=== PATIENT | male | born 1990 | race Caucasian/White ===

== ENCOUNTER 2018-04-24 21:02 | Emergency (ER) | payer SELFPAY ==
[2018-04-24 21:16] VITALS: O2SAT 97
--- NOTE | 2018-04-24 21:24 | ED PDOC ---
HPI: Influenza Time Seen by Provider: 04/24/18 21:22 Chief Complaint: Flu-like Symptoms Chief Complaint (Provider): Flu like symptoms History Per: Patient Exam Limitations: no limitations Symptoms include: fever, headache, bodyaches, cough. denies: sore throat, vomiting Additional complaint(s):: 28 year old male presents to the ED complaining of cough, fever, bodyaches, and headache since Saturday. Patient reports he took aspirin today. Denies sore throat or vomiting. PMD: none Past Medical History Reviewed: Historical Data, Nursing Documentation, Vital Signs Vital Signs: Last Vital Signs Temp 102.5 F H 04/24/18 21:14 Pulse 108 H 04/24/18 21:14 Resp 20 04/24/18 21:14 BP 148/71 04/24/18 21:14 Pulse Ox 97 04/24/18 21:14 - Medical History PMH: No Chronic Diseases - Surgical History Surgical History: Appendectomy (may 2013) - Family History Family History: States: Unknown Family Hx - Immunization History Hx Tetanus Toxoid Vaccination: No Hx Influenza Vaccination: No Hx Pneumococcal Vaccination: No - Home Medications Home Medications: Ambulatory Orders Medication Instructions Recorded Famotidine [Pepcid] 20 mg PO BID #20 tab 03/25/14 Ondansetron [Zofran] 4 mg PO Q8H #9 tab 03/25/14 Acetaminophen [Acetaminophen Extra 2 tab PO Q6 PRN #24 tablet 04/24/18 Strength] Ibuprofen [Motrin Tab] 800 mg PO Q8 PRN #21 tab 04/24/18 Oseltamivir Phosphate [Tamiflu] 75 mg PO BID #9 capsule 04/24/18 - Allergies Allergies/Adverse Reactions: Allergies Allergy/AdvReac Type Severity Reaction Status Date / Time No Known Allergies Allergy Verified 04/24/18 21:16 Review of Systems ROS Statement: Except As Marked, All Systems Reviewed And Found Negative Constitutional: Positive for: Fever, Other (bodyaches) ENT: Negative for: Throat Pain Respiratory: Positive for: Cough Gastrointestinal: Negative for: Vomiting Neurological: Positive for: Headache Physical Exam - Reviewed Nursing Documentation Reviewed: Yes Vital Signs Reviewed: Yes - Physical Exam Appears: Positive for: Non-toxic, No Acute Distress Head Exam: Positive for: ATRAUMATIC, NORMOCEPHALIC Skin: Positive for: Normal Color, Warm, Dry Eye Exam: Positive for: Normal appearance ENT: Positive for: Normal ENT Inspection, Pharynx Is (normal) Neck: Positive for: Normal, Painless ROM Cardiovascular/Chest: Positive for: Regular Rate, Rhythm Respiratory: Positive for: Normal Breath Sounds. Negative for: Wheezing, Respiratory Distress Gastrointestinal/Abdominal: Positive for: Normal Exam, Soft. Negative for: Tenderness Extremity: Positive for: Normal ROM Neurologic/Psych: Positive for: Alert, Oriented. Negative for: Motor/Sensory Deficits Medical Decision Making Medical Decision Making: Initial Plan: --Motrin 800mg PO --Tylenol 975mg PO --Tamiflu 75mg PO Scribe Attestation: Documented by Kvng Hanna acting as a scribe for Kye PASCUAL. Provider Scribe Attestation: All medical record entries made by the Scribe were at my direction and personally dictated by me. I have reviewed the chart and agree that the record accurately reflects my personal performance of the history, physical exam, [facility] decision making, and the department course for this patient. I have also personally directed, reviewed, and agree with the discharge instructions and disposition. - ECG O2 Sat by Pulse Oximetry: 97 - Progress ED Course And Treament: Repeat temp 99.2 Disposition - Clinical Impression Clinical Impression: Influenza - Patient ED Disposition Is Patient to be Admitted: No - Disposition Disposition: Routine/Home Disposition Time: 21:36 Condition: FAIR Prescriptions: Acetaminophen [Acetaminophen Extra Strength] 2 tab PO Q6 PRN #24 tablet PRN Reason: Fever >100.4 F Ibuprofen [Motrin Tab] 800 mg PO Q8 PRN #21 tab PRN Reason: Fever >100.4 F Oseltamivir Phosphate [Tamiflu] 75 mg PO BID #9 capsule Instructions: Flu, Adult (DC) Forms: [facility] ED School/Work Excuse Print Language: PORTUGUESE
[2018-04-24 22:45] VITALS: BP 121/71; PULSE 97; RESP 18; TEMP 99.8
== END 2018-04-24 22:51 | disposition home or self-care (01) ==
LOC: H.ER 21:02
DX: J11.1 Influenza due to unidentified influenza virus with other respiratory manifestations (principal)